=== PATIENT | female | born 1935 | race Caucasian/White ===

== ENCOUNTER → 2017-05-08 | Outpatient (REF) | payer OTHER | LOC: M LAB REF 17:05 | PROVIDERS: ATTEND Nurse Practitioner Family | DX: N76.0 Acute vaginitis (principal) ==

== ENCOUNTER 2017-07-28 22:44 | Emergency (ER) | payer OTHER ==
[2017-07-29 00:01] LABS: BASO % 0.2 % (0.0-1.0); EOS % 0.2 % (0.0-3.0); IMMATURE GRANULOCYTE # 0.1 10^3/uL (0-0); IMMATURE GRANULOCYTE % 0.7 % (0-0); LYMPH % 6.6 % (24.0-44.0); MEAN CORPUSCULAR HEMOGLOBIN 30.6 pg (27.0-33.0); MEAN CORPUSCULAR HGB CONC 33.9 g/dl (32.0-36.5); MEAN CORPUSCULAR VOLUME 90.1 fl (80.0-96.0); MONO # 1.6 10^3/uL (0.0-0.8); MONO % 10.6 % (0.0-5.0); NEUTROPHILS # 12.1 10^3/uL (1.8-7.7); NEUTROPHILS % 81.7 % (36.0-66.0); PLATELET COUNT, AUTOMATED 133 10^3/uL (150-450); RED CELL DISTRIBUTION WIDTH 12.1 % (11.5-14.5); WHITE BLOOD COUNT 14.8 10^3/uL (4.0-10.0)
[2017-07-29 00:10] LABS: ANION GAP 7 MEQ/L (8-16); BLOOD UREA NITROGEN 44 MG/DL (7-18); CALCIUM LEVEL 8.7 MG/DL (8.8-10.2); CARBON DIOXIDE LEVEL 31 MEQ/L (21-32); CHLORIDE LEVEL 102 MEQ/L (98-107); CREATININE FOR GFR 2.19 MG/DL (0.55-1.02); GLOMERULAR FILTRATION RATE 22.9 (>32); GLUCOSE, FASTING 125 MG/DL (83-110); POTASSIUM SERUM 3.9 MEQ/L (3.5-5.1); SODIUM LEVEL 140 MEQ/L (136-145)
[2017-07-29 00:13] LABS: LACTIC ACID SEPSIS PROTOCOL 1.4 MMOL/L (0.4-2.0)
[2017-07-29] MEDS: CIPROFLOXACIN 400 MG in APPROPRIATE DILUENT 1 EA IV (01:30)
[2017-07-29] MEDS: NS 1,000 ML IV (01:30)
== END 2017-07-29 04:02 | disposition home or self-care (01) ==
LOC: M ED 22:44
DX: N39.0 Urinary tract infection, site not specified (principal); E86.0 Dehydration; I10 Essential (primary) hypertension; E78.5 Hyperlipidemia, unspecified; Z79.899 Other long term (current) drug therapy; Z79.82 Long term (current) use of aspirin; Z88.8 Allergy status to other drugs, medicaments and biological substances
CPT/HCPCS: J0744

== ENCOUNTER → 2018-06-15 | Outpatient (REF) | payer OTHER ==
[2018-06-15 18:57] LABS: VITAMIN B12 LEVEL 702 PG/ML (247-911)
== END ==
LOC: M LAB REF 16:46
DX: L65.8 Other specified nonscarring hair loss (principal)
CPT/HCPCS: 82607

== ENCOUNTER → 2018-06-29 | Outpatient (REF) | payer OTHER | LOC: M LAB REF 16:43 | DX: N76.0 Acute vaginitis (principal) | CPT/HCPCS: 87070 ==

== ENCOUNTER → 2018-07-21 | Outpatient (REF) | payer OTHER ==
[~2018-07-21] MED LIST: AMIT100TA PO; ASPI1TAB15 PO; CARV25TA PO; CIPR-249 PO; FURO40TA2 PO; GABA-1171 PO; LORA0.5T11 PO; MICR10CA PO; SIMV20TA2 PO
[2018-07-21 13:51] LABS: BACTERIA, URINE AUTO 1+ (NEGATIVE); RBC, URINE AUTO 5 /HPF (0-3); SQUAMOUS EPITHELIAL CELL UR AU 2 /HPF (0-6); WBC, URINE AUTO 2 /HPF (0-3)
== END ==
LOC: M LAB REF 12:48
PROVIDERS: ATTEND Nurse Practitioner Family
DX: R31.9 Hematuria, unspecified (principal)

== ENCOUNTER → 2018-08-19 | Outpatient (REF) | payer MEDICARE, OTHER | LOC: M SMT 17:07 | PROVIDERS: ATTEND Specialist | DX: R31.29 Other microscopic hematuria (principal) | CPT/HCPCS: 87480; 87510; 87660; G0463 ==

== ENCOUNTER 2019-06-03 08:02 | Day surgery (SDC) | payer MEDICARE ==
[~2019-06-03] VITALS: Ht 149.9 cm; Wt 49.0 kg
[~2019-06-03 08:02] MED LIST changes: +CALC500C16 PO; +LEVO50TA5 PO; +LOSA100T50 PO; +MM S100C PO; +MULTCAP PO; +NS 1,000 ML IV ONE; +POTA10TA16 PO
[2019-06-03] MEDS ORDERED: PROPOFOL 200 MG/20 ML VIAL As Ordered ONE (09:14)
[2019-06-03] MEDS ORDERED: LIDOCAINE 2% INJ 100 MG/5 ML SDV (FOR ANES.) As Ordered ONE (09:14)
[2019-06-03] MEDS ORDERED: fentaNYL 100 MCG/2 ML INJECTION (J3010) As Ordered ONE (09:14)
--- NOTE | 2019-06-03 09:27 | ROOR ---
Patient Name: Megan Nevarez Procedure Date: 06/03/2019 9:10 AM Date of : 1935 Age: 83 Room: [facility] Gender: Female Note Status: Finalized Procedure: Upper GI endoscopy Indications: Iron deficiency anemia Providers: David San Jr, MD Referring MD: VAMSI SANCHEZ NP Requesting Provider: Medicines: Propofol per Anesthesia Complications: No immediate complications. Procedure: Pre-Anesthesia Assessment: - Prior to the procedure, a History and Physical was performed, and patient medications and allergies were reviewed. The patient is competent. The risks and benefits of the procedure and the sedation options and risks were discussed with the patient. All questions were answered and informed consent was obtained. Patient identification and proposed procedure were verified by the physician and the nurse in the pre-procedure area and in the procedure room. Mental Status Examination: alert and oriented. Airway Examination: normal oropharyngeal airway and neck mobility. Respiratory Examination: clear to auscultation. CV Examination: normal. ASA Grade Assessment: III - A patient with severe systemic disease. After reviewing the risks and benefits, the patient was deemed in satisfactory condition to undergo the procedure. The anesthesia plan was to use moderate sedation / analgesia (conscious sedation). Immediately prior to administration of medications, the patient was re-assessed for adequacy to receive sedatives. The heart rate, respiratory rate, oxygen saturations, blood pressure, adequacy of pulmonary ventilation, and response to care were monitored throughout the procedure. The physical status of the patient was re-assessed after the procedure. The Endoscope was introduced through the mouth, and advanced to the second part of duodenum. The patient tolerated the procedure well. The upper GI endoscopy was accomplished without difficulty. Findings: The upper third of the esophagus, middle third of the esophagus and lower third of the esophagus were normal. Patchy severe inflammation with hemorrhage characterized by congestion (edema), erosions and friability was found in the gastric antrum and in the prepyloric region of the stomach. Biopsies were taken with a cold forceps for histology. The cardia, gastric fundus and gastric body were normal. The duodenal bulb, first portion of the duodenum and second portion of the duodenum were normal. Impression: - Normal upper third of esophagus, middle third of esophagus and lower third of esophagus. - Gastritis with hemorrhage. Biopsied. - Normal cardia, gastric fundus and gastric body. - Normal duodenal bulb, first portion of the duodenum and second portion of the duodenum. Recommendation: - Discharge patient to home (ambulatory). - Return to my office as previously scheduled. David San MD David San Jr, MD 06/03/2019 9:26:35 AM Electronically signed by David San Jr, MD Number of Addenda: 0 Note Initiated On: 06/03/2019 9:10 AM Estimated Blood Loss: Estimated blood loss: none.
--- NOTE | 2019-06-03 09:46 | ROOR ---
Patient Name: Megan Nevarez Procedure Date: 06/03/2019 9:11 AM Date of : 1935 Age: 83 Room: [facility] Gender: Female Note Status: Finalized Procedure: Colonoscopy Indications: Iron deficiency anemia Providers: aDvid San Jr, MD Referring MD: VAMSI SANCHEZ NP Requesting Provider: Medicines: Propofol per Anesthesia Complications: No immediate complications. Procedure: Pre-Anesthesia Assessment: - Prior to the procedure, a History and Physical was performed, and patient medications and allergies were reviewed. The patient is competent. The risks and benefits of the procedure and the sedation options and risks were discussed with the patient. All questions were answered and informed consent was obtained. Patient identification and proposed procedure were verified by the physician and the nurse in the pre-procedure area and in the procedure room. Mental Status Examination: alert and oriented. Airway Examination: normal oropharyngeal airway and neck mobility. Respiratory Examination: clear to auscultation. CV Examination: normal. ASA Grade Assessment: III - A patient with severe systemic disease. After reviewing the risks and benefits, the patient was deemed in satisfactory condition to undergo the procedure. The anesthesia plan was to use moderate sedation / analgesia (conscious sedation). Immediately prior to administration of medications, the patient was re-assessed for adequacy to receive sedatives. The heart rate, respiratory rate, oxygen saturations, blood pressure, adequacy of pulmonary ventilation, and response to care were monitored throughout the procedure. The physical status of the patient was re-assessed after the procedure. The Colonoscope was introduced through the anus and advanced to the cecum, identified by appendiceal orifice and ileocecal valve. The colonoscopy was performed without difficulty. The patient tolerated the procedure well. The quality of the bowel preparation was adequate. Findings: The rectum, descending colon, transverse colon, ascending colon, cecum and appendiceal orifice appeared normal. Multiple small and large-mouthed diverticula were found in the sigmoid colon. Impression: - The rectum, descending colon, transverse colon, ascending colon, cecum and appendiceal orifice are normal. - Diverticulosis in the sigmoid colon. - No specimens collected. Recommendation: - Discharge patient to home (ambulatory). David San MD David San Jr, MD 06/03/2019 9:46:30 AM Electronically signed by David San Jr, MD Number of Addenda: 0 Note Initiated On: 06/03/2019 9:11 AM Estimated Blood Loss: Estimated blood loss: none.
[2019-06-03 10:05] VITALS: BP 115/86
== END 2019-06-03 10:20 | disposition home or self-care (01) ==
LOC: M OPP 08:02
PROVIDERS: ATTEND Surgery
DX: K57.30 Diverticulosis of large intestine without perforation or abscess without bleeding (principal); K92.1 Melena; D50.9 Iron deficiency anemia, unspecified; Z86.010 Personal history of colon polyps; K29.71 Gastritis, unspecified, with bleeding; I42.0 Dilated cardiomyopathy; I50.22 Chronic systolic (congestive) heart failure; I44.7 Left bundle-branch block, unspecified; Z79.82 Long term (current) use of aspirin; Z79.899 Other long term (current) drug therapy; Z95.810 Presence of automatic (implantable) cardiac defibrillator
CPT/HCPCS: 43239; 45378; 88305; J3010

== ENCOUNTER 2021-03-30 19:20 | Emergency (ER) | payer MEDICARE ==
[~2021-03-30] VITALS: Ht 149.9 cm; Wt 51.3 kg
[~2021-03-30 19:20] MED LIST changes: +ASPI-546 PO; -ASPI1TAB15 PO; -LORA0.5T11 PO; +LORA0.5T5 PO; -NS 1,000 ML IV ONE; -SIMV20TA2 PO; +SIMV20TA22 PO
[2021-03-30 19:22] VITALS: BP 163/77
== END 2021-03-30 21:39 | disposition home or self-care (01) ==
LOC: M ED 19:20
DX: L76.22 Postprocedural hemorrhage of skin and subcutaneous tissue following other procedure (principal); I25.10 Atherosclerotic heart disease of native coronary artery without angina pectoris; I10 Essential (primary) hypertension; Z79.82 Long term (current) use of aspirin; Z79.899 Other long term (current) drug therapy

== ENCOUNTER → 2021-08-24 | Outpatient (REF) | payer MEDICARE ==
[~2021-08-24] MED LIST changes: +LOSA100T45 PO; -LOSA100T50 PO; +POTA-149 PO; -POTA10TA16 PO
== END ==
LOC: M LAB REF 16:53
PROVIDERS: ATTEND Registered Nurse
DX: N76.0 Acute vaginitis (principal)

== ENCOUNTER → 2022-03-04 | Outpatient (CLI) | payer MEDICARE | LOC: M WUC 14:56 | PROVIDERS: ATTEND Registered Nurse | DX: M54.6 Pain in thoracic spine (principal); W19.XXXA Unspecified fall, initial encounter ==

== ENCOUNTER 2022-11-28 08:16 | Emergency (ER) | payer MEDICARE ==
[~2022-11-28] VITALS: Ht 149.9 cm; Wt 50.7 kg
[2022-11-28] MEDS ORDERED: traMADol 50 MG TAB PO ONE (09:30)
[2022-11-28] MEDS ORDERED: TRAM50TA2 PO ×2 (10:39→11:26)
[2022-11-28 10:53] VITALS: BP 139/66
== END 2022-11-28 11:01 | disposition home or self-care (01) ==
LOC: M ED 08:16
DX: S20.211A Contusion of right front wall of thorax, initial encounter (principal); S22.41XA Multiple fractures of ribs, right side, initial encounter for closed fracture; J91.8 Pleural effusion in other conditions classified elsewhere; W18.2XXA Fall in (into) shower or empty bathtub, initial encounter; I10 Essential (primary) hypertension; E03.9 Hypothyroidism, unspecified; Z95.0 Presence of cardiac pacemaker; Y92.009 Unspecified place in unspecified non-institutional (private) residence as the place of occurrence of the external cause; Z79.82 Long term (current) use of aspirin; Z79.811 Long term (current) use of aromatase inhibitors; Z79.810 Long term (current) use of selective estrogen receptor modulators (SERMs); Z79.899 Other long term (current) drug therapy

== ENCOUNTER → 2023-10-06 | Outpatient (CLI) | payer MEDICARE ==
[~2023-10-06] MED LIST changes: -LOSA100T45 PO; +LOSA100T46 PO; +TRAM50TA2 PO
== END ==
LOC: M WUC 12:46
PROVIDERS: ATTEND Physician Assistant
DX: S46.811A Strain of other muscles, fascia and tendons at shoulder and upper arm level, right arm, initial encounter (principal); S39.012A Strain of muscle, fascia and tendon of lower back, initial encounter; W18.30XA Fall on same level, unspecified, initial encounter; Y92.009 Unspecified place in unspecified non-institutional (private) residence as the place of occurrence of the external cause

== ENCOUNTER → 2024-07-31 | Outpatient (REF) | payer MEDICARE | LOC: M WUC 18:29 | PROVIDERS: ATTEND Physician Assistant | DX: R30.0 Dysuria (principal) ==

== ENCOUNTER 2025-03-18 21:35 | Inpatient (IN) | payer MEDICARE ==
[~2025-03-18] VITALS: Ht 149.9 cm; Wt 53.9 kg
[2025-03-19 00:58] LABS: BASO # 0.1 10^3/uL (0.0-0.2); BASO % 0.5 % (0.0-1.0); EOS # 0.1 10^3/uL (0.0-0.5); EOS % 1.1 % (0.0-3.0); LYMPH # 2.2 10^3/uL (1.5-5.0); LYMPH % 16.9 % (24.0-44.0); MONO # 1.1 10^3/uL (0.0-0.8); MONO % 8.0 % (2.0-8.0); NEUTROPHILS # 9.7 10^3/uL (1.5-8.5); NEUTROPHILS % 73.2 % (36.0-66.0); PLATELET COUNT, AUTOMATED 186 10^3/uL (150-450)
[2025-03-19] MEDS: ONDANSETRON 4MG 2ML VIAL IV ONE ×3 (01:01→16:49)
[2025-03-19] MEDS: MORPHINE 4 MG/ML 1 ML VIAL IV PRN (01:01)
[2025-03-19 01:17] LABS: ALT/SGPT < 9 U/L (7.0-40); AST/SGOT 26 U/L (<34); CALCIUM LEVEL 10.1 MG/DL (8.3-10.6); CARBON DIOXIDE LEVEL 30 MMOL/L (20-31); CHLORIDE LEVEL 99 MMOL/L (98-107); CK-MB VALUE MASS 1.8 NG/ML (<3.6); CREATININE FOR GFR 0.85 MG/DL (0.55-1.30); GLOMERULAR FILTRATION RATE 65.5 (>32); POTASSIUM SERUM 4.1 MMOL/L (3.5-5.1); SODIUM LEVEL 139 MMOL/L (136-145)
[2025-03-19 01:19] LABS: CPK CREATINE PHOSPHOKINASE 88 U/L (34-145); MB/CK RELATIVE INDEX 2.04 (< OR =4)
[2025-03-19] MEDS ORDERED: ISOVUE-370 76% 100 ML VIAL As Ordered ONE (01:34)
[2025-03-19 02:47] LABS: CK-MB VALUE MASS 1.4 NG/ML (<3.6); CPK CREATINE PHOSPHOKINASE 95.0 U/L (34-145); MB/CK RELATIVE INDEX 1.47 (< OR =4)
[2025-03-19] MEDS: cefTRIAXone SOD 1 GM in DEXTROSE 5% (D5W) ADV/MINI-BAG 50 ML IV ONE (04:10)
[2025-03-19] MEDS: BISACODYL 10 MG SUPP PR SCH (05:34)
[2025-03-19 06:38] LABS: KETONE, URINE AUTO RFX TRACE mg/dL (NEGATIVE); MUCUS, URINE RFX SMALL (NEGATIVE); NITRITE, URINE AUTO RFX NEGATIVE (NEGATIVE); RBC, URINE AUTO RFX 0 /HPF (0-3); SQUAM EPITHELIAL CELL UR AURFX 8 /HPF (0-6); WBC, URINE AUTO RFX 1 /HPF (0-3)
[2025-03-19 06:51] LABS: LEUKOCYTE ESTERASE UR AUTO RFX 1+ (NEGATIVE)
[2025-03-19] MEDS ORDERED: POTA10CA70 PO ×2 (06:53)
[2025-03-19] MEDS ORDERED: AMLO1TAB24 PO (06:53)
[2025-03-19] MEDS ORDERED: FURO20TA2 PO (06:53)
[2025-03-19] MEDS ORDERED: ATIV1TAB10 PO (06:53)
[2025-03-19] MEDS ORDERED: LOSA25TA13 PO (06:53)
[2025-03-19] MEDS ORDERED: ESTR0.1C5 VG (06:53)
[2025-03-19] MEDS ORDERED: GINK40CA2 PO (06:53)
[2025-03-19] MEDS ORDERED: PANT40TA29 PO (06:53)
[2025-03-19] MEDS ORDERED: AMIT50TA PO (06:53)
[2025-03-19] MEDS ORDERED: HOME MED LIST COMPLETE! XX SCH (06:55)
[2025-03-19] MEDS: DOCUSATE SODIUM 100 MG CAPSULE PO SCH (07:48)
[2025-03-19] MEDS: HYDROMORPHONE HCL 0.5 MG/0.5 ML SYRINGE IV PRN ×2 (07:55→16:48)
[2025-03-19] MEDS: metroNIDAZOLE 500 MG in IV 1 EA IV SCH (07:55)
[2025-03-19] MEDS ORDERED: LORazepam 1 MG TAB PO PRN (11:00)
[2025-03-19] MEDS: ONDANSETRON 4MG 2ML VIAL IV SCH (11:53)
[2025-03-19] MEDS: MAGNESIUM CITRATE 300 ML BTL PO ONE (11:54)
[2025-03-19 13:22] LABS: BASO # 0.1 10^3/uL (0.0-0.2); BASO % 0.4 % (0.0-1.0); EOS # 0.1 10^3/uL (0.0-0.5); EOS % 0.4 % (0.0-3.0); LYMPH # 1.6 10^3/uL (1.5-5.0); LYMPH % 11.4 % (24.0-44.0); MONO # 1.4 10^3/uL (0.0-0.8); MONO % 9.6 % (2.0-8.0); NEUTROPHILS # 11.1 10^3/uL (1.5-8.5); NEUTROPHILS % 77.8 % (36.0-66.0); PLATELET COUNT, AUTOMATED 208 10^3/uL (150-450)
[2025-03-19 13:52] LABS: ALT/SGPT 108.0 U/L (7.0-40); AST/SGOT 313.0 U/L (<34); CALCIUM LEVEL 9.5 MG/DL (8.3-10.6); CARBON DIOXIDE LEVEL 28.0 MMOL/L (20-31); CHLORIDE LEVEL 103.0 MMOL/L (98-107); CREATININE FOR GFR 0.88 MG/DL (0.55-1.30); GLOMERULAR FILTRATION RATE 62.8 (>32); MAGNESIUM LEVEL 1.9 MG/DL (1.8-2.4); POTASSIUM SERUM 4.2 MMOL/L (3.5-5.1); SODIUM LEVEL 143.0 MMOL/L (136-145)
[2025-03-19 14:46] VITALS: BP 120/68; TEMP 97.5; O2SAT 91
[2025-03-19 15:00] LABS: C REACTIVE PROTEIN QUANTITATIV < 0.50 MG/DL (<1.0)
[2025-03-19] MEDS: LOSARTAN 25 MG TAB PO SCH (15:28)
[2025-03-19] MEDS: FUROSEMIDE 20 MG TAB PO SCH (15:29)
[2025-03-19] MEDS: PANTOPRAZOLE 40MG TAB PO SCH (16:01)
[2025-03-19] MEDS: POTASSIUM CHLORIDE 10MEQ SR TABLET PO SCH (16:01)
[2025-03-19] MEDS: amLODIPine 5 MG TAB PO SCH (16:03)
[2025-03-19] MEDS: LR 1,000 ML IV SCH (16:03)
[2025-03-19] MEDS: LEVOTHYROXINE 50 MCG TABLET (0.05 MG) PO SCH (16:06)
[2025-03-19 16:55] VITALS: BP 136/69; TEMP 98.1; O2SAT 92
[2025-03-19] MEDS ORDERED: POTASSIUM CHLORIDE 10MEQ SR TABLET PO SCH (21:00)
[2025-03-19] MEDS ORDERED: SIMVASTATIN 20 MG TAB PO SCH (21:00)
[2025-03-19] MEDS ORDERED: AMITRIPTYLINE 50MG TAB PO SCH (21:00)
[2025-03-19 23:15] VITALS: BP 135/69; TEMP 97.7; O2SAT 96
[2025-03-19] MEDS: AMITRIPTYLINE 50MG TAB NG SCH (23:21)
[2025-03-20] VITALS (7 sets, daily range): BP systolic 124–134; BP diastolic 60–76; TEMP 97.5–97.9; O2SAT 94–97
[2025-03-20] MEDS: cefTRIAXone SOD 1 GM in DEXTROSE 5% (D5W) ADV/MINI-BAG 50 ML IV SCH (05:26)
[2025-03-20 06:04] LABS: PLATELET COUNT, AUTOMATED 180 10^3/uL (150-450)
[2025-03-20 06:36] LABS: ALT/SGPT 66.0 U/L (7.0-40); AST/SGOT 109.0 U/L (<34); CALCIUM LEVEL 8.6 MG/DL (8.3-10.6); CARBON DIOXIDE LEVEL 30.0 MMOL/L (20-31); CHLORIDE LEVEL 103.0 MMOL/L (98-107); CREATININE FOR GFR 0.87 MG/DL (0.55-1.30); GLOMERULAR FILTRATION RATE 63.7 (>32); MAGNESIUM LEVEL 1.9 MG/DL (1.8-2.4); POTASSIUM SERUM 4.3 MMOL/L (3.5-5.1); SODIUM LEVEL 145.0 MMOL/L (136-145)
[2025-03-20] MEDS: PANTOPRAZOLE 40MG VIAL IV SCH (08:29)
[2025-03-20] MEDS: LOSARTAN 25 MG TAB NG SCH (08:30)
[2025-03-20] MEDS: ENOXAPARIN 30 MG/0.3 ML SYRINGE (J1650 PER 10MG) SC SCH (08:31)
[2025-03-20] MEDS: amLODIPine 5 MG TAB NG SCH (08:31)
[2025-03-20] MEDS ORDERED: DOCUSATE SODIUM 100 MG CAPSULE PO SCH (09:00)
[2025-03-20] MEDS: CEPACOL LOZENGE PO PRN (11:01)
[2025-03-20] MEDS: ONDANSETRON 4MG 2ML VIAL IV PRN (21:34)
[2025-03-21] VITALS (7 sets, daily range): BP systolic 119–152; BP diastolic 58–81; TEMP 97.5–97.7; O2SAT 92–98
[2025-03-21 08:01] LABS: BASO # 0.1 10^3/uL (0.0-0.2); BASO % 0.4 % (0.0-1.0); EOS # 0.1 10^3/uL (0.0-0.5); EOS % 0.5 % (0.0-3.0); LYMPH # 1.1 10^3/uL (1.5-5.0); LYMPH % 8.5 % (24.0-44.0); MONO # 1.3 10^3/uL (0.0-0.8); MONO % 10.1 % (2.0-8.0); NEUTROPHILS # 10.3 10^3/uL (1.5-8.5); NEUTROPHILS % 80.0 % (36.0-66.0); PLATELET COUNT, AUTOMATED 160 10^3/uL (150-450)
[2025-03-21 08:32] LABS: CALCIUM LEVEL 8.4 MG/DL (8.3-10.6); CARBON DIOXIDE LEVEL 28.0 MMOL/L (20-31); CHLORIDE LEVEL 102.0 MMOL/L (98-107); CREATININE FOR GFR 0.78 MG/DL (0.55-1.30); GLOMERULAR FILTRATION RATE 72.6 (>32); MAGNESIUM LEVEL 1.7 MG/DL (1.8-2.4); POTASSIUM SERUM 3.8 MMOL/L (3.5-5.1); SODIUM LEVEL 144.0 MMOL/L (136-145)
[2025-03-21] MEDS ORDERED: E-Z-PAQUE 96% w/w SUSP 176 GM BTL As Ordered ONE (12:01)
[2025-03-21] MEDS: MAG SULF 1GM/100ML (MAG RUN) 1 GM in IV 1 EA IV ONE (14:44)
[2025-03-21] MEDS: LR 1,000 ML IV SCH (19:13)
[2025-03-21] MEDS: OLANZapine INTRAMUSCULAR 10MG VIAL IM SCH (20:33)
[2025-03-22] VITALS (9 sets, daily range): BP systolic 115–161; BP diastolic 64–87; TEMP 97.3–98.1; O2SAT 84–94
[2025-03-22 06:15] LABS: PLATELET COUNT, AUTOMATED 153 10^3/uL (150-450)
[2025-03-22 06:37] LABS: CALCIUM LEVEL 8.3 MG/DL (8.3-10.6); CARBON DIOXIDE LEVEL 28.0 MMOL/L (20-31); CHLORIDE LEVEL 104.0 MMOL/L (98-107); CREATININE FOR GFR 0.71 MG/DL (0.55-1.30); GLOMERULAR FILTRATION RATE 81.2 (>32); MAGNESIUM LEVEL 1.7 MG/DL (1.8-2.4); POTASSIUM SERUM 3.5 MMOL/L (3.5-5.1); SODIUM LEVEL 146.0 MMOL/L (136-145)
[2025-03-22 09:35] LABS: ALT/SGPT 29.0 U/L (7.0-40); AST/SGOT 34.0 U/L (<34)
[2025-03-22] MEDS: MAG SULF 1GM/100ML (MAG RUN) 1 GM in IV 1 EA IV ONE (10:51)
[2025-03-22] MEDS: ACETAMINOPHEN 325 MG TAB PO PRN (16:12)
[2025-03-23] VITALS: BP 126/67; TEMP 97.3; O2SAT 90
[2025-03-23 04:00] VITALS: BP 152/78; TEMP 97.9; O2SAT 91
[2025-03-23 06:03] LABS: BASO # 0.0 10^3/uL (0.0-0.2); BASO % 0.4 % (0.0-1.0); EOS # 0.1 10^3/uL (0.0-0.5); EOS % 1.1 % (0.0-3.0); LYMPH # 1.1 10^3/uL (1.5-5.0); LYMPH % 11.3 % (24.0-44.0); MONO # 1.0 10^3/uL (0.0-0.8); MONO % 9.6 % (2.0-8.0); NEUTROPHILS # 7.8 10^3/uL (1.5-8.5); NEUTROPHILS % 77.2 % (36.0-66.0); PLATELET COUNT, AUTOMATED 176 10^3/uL (150-450)
[2025-03-23 06:28] LABS: CALCIUM LEVEL 8.5 MG/DL (8.3-10.6); CARBON DIOXIDE LEVEL 29.0 MMOL/L (20-31); CHLORIDE LEVEL 106.0 MMOL/L (98-107); CREATININE FOR GFR 0.69 MG/DL (0.55-1.30); GLOMERULAR FILTRATION RATE 82.9 (>32); MAGNESIUM LEVEL 1.7 MG/DL (1.8-2.4); POTASSIUM SERUM 3.3 MMOL/L (3.5-5.1); SODIUM LEVEL 148.0 MMOL/L (136-145)
[2025-03-23] MEDS ORDERED: amLODIPine 5 MG TAB PO SCH (09:01)
[2025-03-23] MEDS ORDERED: LOSARTAN 25 MG TAB PO SCH (09:03)
[2025-03-23] MEDS: amLODIPine 5 MG TAB PO SCH (09:08)
[2025-03-23] MEDS: LOSARTAN 25 MG TAB PO SCH (09:08)
[2025-03-23] MEDS: MAG SULF 1GM/100ML (MAG RUN) 1 GM in IV 1 EA IV ONE (11:17)
[2025-03-23 12:00] VITALS: BP 141/70; TEMP 98.1; O2SAT 94
[2025-03-23] MEDS: KCL 10MEQ/100ML SWI (KRUN) 10 MEQ in IV 1 EA IV SCH (12:53)
[2025-03-23] MEDS: SIMETHICONE 80MG CHEW TAB PO PRN (12:53)
[2025-03-23] MEDS: POTASSIUM CHLORIDE 10MEQ SR TABLET PO ONE (14:25)
[2025-03-23 14:43] VITALS: O2SAT 92
[2025-03-23 19:43] VITALS: BP 141/82; TEMP 97.9; O2SAT 93
[2025-03-23] MEDS: AMITRIPTYLINE 50MG TAB PO SCH (20:38)
[2025-03-23] MEDS: HALOBETASOL PROPIONATE 0.05% TOP SCH (20:39)
[2025-03-23] MEDS: ESTRADIOL 0.01% TOP SCH (20:40)
[2025-03-23 23:52] VITALS: BP 129/73; TEMP 97.9; O2SAT 93
[2025-03-24] VITALS (10 sets, daily range): BP systolic 117–160; BP diastolic 55–78; TEMP 97.3–98.2; O2SAT 91–95
[2025-03-24] MEDS: MORPHINE 2 MG/ML 1 ML VIAL IV PRN (03:12)
[2025-03-24] MEDS: ACETAMINOPHEN *IV* 1,000 MG in IV 1 EA IV ONE (05:00)
[2025-03-24] MEDS: MORPHINE 2 MG/ML 1 ML VIAL IV ONE (05:00)
[2025-03-24 05:42] LABS: BASO # 0.0 10^3/uL (0.0-0.2); BASO % 0.3 % (0.0-1.0); EOS # 0.1 10^3/uL (0.0-0.5); EOS % 1.1 % (0.0-3.0); LYMPH # 1.2 10^3/uL (1.5-5.0); LYMPH % 9.7 % (24.0-44.0); MONO # 1.2 10^3/uL (0.0-0.8); MONO % 10.1 % (2.0-8.0); NEUTROPHILS # 9.3 10^3/uL (1.5-8.5); NEUTROPHILS % 78.5 % (36.0-66.0); PLATELET COUNT, AUTOMATED 186 10^3/uL (150-450)
[2025-03-24 06:14] LABS: CALCIUM LEVEL 8.3 MG/DL (8.3-10.6); CARBON DIOXIDE LEVEL 29.0 MMOL/L (20-31); CHLORIDE LEVEL 106.0 MMOL/L (98-107); CREATININE FOR GFR 0.59 MG/DL (0.55-1.30); GLOMERULAR FILTRATION RATE 86.1 (>32); MAGNESIUM LEVEL 1.8 MG/DL (1.8-2.4); POTASSIUM SERUM 3.3 MMOL/L (3.5-5.1); SODIUM LEVEL 149.0 MMOL/L (136-145)
[2025-03-24] MEDS: KCL 20MEQ IN D5/0.45NS 1000ML 1,000 ML IV SCH (09:50)
[2025-03-24] MEDS ORDERED: MIDAZOLAM INJ 2 MG/2 ML VIAL As Ordered ONE (10:15)
[2025-03-24] MEDS ORDERED: ROCURONIUM BROMIDE 50MG/5ML VIAL As Ordered ONE (10:19)
[2025-03-24] MEDS ORDERED: LIDOCAINE 2% 100 MG/5 ML SDV (FOR ANES.) As Ordered ONE (10:19)
[2025-03-24] MEDS ORDERED: SUGAMMADEX SODIUM 500 MG/5 ML VIAL As Ordered ONE (10:19)
[2025-03-24] MEDS ORDERED: ONDANSETRON 4MG 2ML VIAL As Ordered ONE (10:20)
[2025-03-24] MEDS ORDERED: dexAMETHasone 4 MG/ML 1 ML VIAL As Ordered ONE (10:20)
[2025-03-24] MEDS ORDERED: KETOROLAC 30 MG/ML 1 ML VIAL As Ordered ONE (10:20)
[2025-03-24 10:34] LABS: ALT/SGPT 19.0 U/L (7.0-40); AST/SGOT 26.0 U/L (<34)
[2025-03-24] MEDS ORDERED: HYDROMORPHONE HCL 0.5 MG/0.5 ML SYRINGE IV PRN ×3 (10:35→14:20)
[2025-03-24] MEDS: LR 1,000 ML IV SCH (10:35)
[2025-03-24] MEDS ORDERED: PHENYLephrine 500MCG 5ML (100MCG/ML) SYRINGE As Ordered ONE (11:52)
[2025-03-24] MEDS: MAG SULF 1GM/100ML (MAG RUN) 1 GM in IV 1 EA IV ONE (12:30)
[2025-03-24] MEDS: KCL 20MEQ IN 100ML SWI (KRUN) 20 MEQ in IV 1 EA IV ONE (12:30)
[2025-03-24] MEDS ORDERED: ACETAMINOPHEN 1000MG/100ML IV BAG As Ordered ONE (13:17)
[2025-03-24] MEDS ORDERED: ONDANSETRON 4MG 2ML VIAL IV PRN (14:20)
[2025-03-24 15:52] LABS: CALCIUM LEVEL 8.0 MG/DL (8.3-10.6); CARBON DIOXIDE LEVEL 28.0 MMOL/L (20-31); CHLORIDE LEVEL 106.0 MMOL/L (98-107); CREATININE FOR GFR 0.63 MG/DL (0.55-1.30); GLOMERULAR FILTRATION RATE 84.7 (>32); POTASSIUM SERUM 3.8 MMOL/L (3.5-5.1); SODIUM LEVEL 147.0 MMOL/L (136-145)
[2025-03-24] MEDS: KCL 10MEQ IN D5/0.45NS 1000ML 1,000 ML IV SCH (17:33)
[2025-03-25 04:58] VITALS: BP 142/72; TEMP 97.7; O2SAT 94
[2025-03-25 06:27] LABS: BASO # 0.0 10^3/uL (0.0-0.2); BASO % 0.2 % (0.0-1.0); EOS # 0.0 10^3/uL (0.0-0.5); EOS % 0.0 % (0.0-3.0); LYMPH # 1.2 10^3/uL (1.5-5.0); LYMPH % 8.1 % (24.0-44.0); MONO # 1.1 10^3/uL (0.0-0.8); MONO % 7.8 % (2.0-8.0); NEUTROPHILS # 12.1 10^3/uL (1.5-8.5); NEUTROPHILS % 83.5 % (36.0-66.0); PLATELET COUNT, AUTOMATED 225 10^3/uL (150-450)
[2025-03-25 06:55] LABS: CALCIUM LEVEL 8.0 MG/DL (8.3-10.6); CARBON DIOXIDE LEVEL 28.0 MMOL/L (20-31); CHLORIDE LEVEL 105.0 MMOL/L (98-107); CREATININE FOR GFR 0.63 MG/DL (0.55-1.30); GLOMERULAR FILTRATION RATE 84.7 (>32); MAGNESIUM LEVEL 1.8 MG/DL (1.8-2.4); POTASSIUM SERUM 3.5 MMOL/L (3.5-5.1); SODIUM LEVEL 144.0 MMOL/L (136-145)
[2025-03-25 08:00] VITALS: BP 149/88; TEMP 97.9; O2SAT 93
[2025-03-25 12:00] VITALS: BP 128/68; TEMP 97.7; O2SAT 86
[2025-03-25 19:46] VITALS: BP 133/80; TEMP 97.7; O2SAT 92
[2025-03-25] MEDS: SIMVASTATIN 20 MG TAB PO SCH (20:17)
[2025-03-26] VITALS: BP 123/56; TEMP 97.9; O2SAT 94
[2025-03-26 04:49] VITALS: BP 125/75; TEMP 98.1; O2SAT 94
[2025-03-26 06:34] LABS: BASO # 0.0 10^3/uL (0.0-0.2); BASO % 0.2 % (0.0-1.0); EOS # 0.4 10^3/uL (0.0-0.5); EOS % 2.7 % (0.0-3.0); LYMPH # 2.2 10^3/uL (1.5-5.0); LYMPH % 17.1 % (24.0-44.0); MONO # 1.1 10^3/uL (0.0-0.8); MONO % 8.7 % (2.0-8.0); NEUTROPHILS # 9.3 10^3/uL (1.5-8.5); NEUTROPHILS % 70.5 % (36.0-66.0); PLATELET COUNT, AUTOMATED 215 10^3/uL (150-450)
[2025-03-26 06:56] LABS: CALCIUM LEVEL 7.4 MG/DL (8.3-10.6); CARBON DIOXIDE LEVEL 29.0 MMOL/L (20-31); CHLORIDE LEVEL 107.0 MMOL/L (98-107); CREATININE FOR GFR 0.61 MG/DL (0.55-1.30); GLOMERULAR FILTRATION RATE 85.4 (>32); MAGNESIUM LEVEL 1.5 MG/DL (1.8-2.4); POTASSIUM SERUM 3.4 MMOL/L (3.5-5.1); SODIUM LEVEL 144.0 MMOL/L (136-145)
[2025-03-26 08:00] VITALS: BP 127/70; TEMP 97.9; O2SAT 94
[2025-03-26] MEDS: MAG SULF 1GM/100ML (MAG RUN) 1 GM in IV 1 EA IV ONE (08:21)
[2025-03-26] MEDS: MAG SULF 1GM/100ML (MAG RUN) 1 GM in IV 1 EA IV SCH (10:53)
[2025-03-26 12:00] VITALS: BP 113/52; TEMP 97.7; O2SAT 92
[2025-03-26] MEDS: KCL 10MEQ/100ML SWI (KRUN) 10 MEQ in IV 1 EA IV SCH (13:20)
[2025-03-26] MEDS ORDERED: LORazepam 0.5 MG TAB PO PRN (14:00)
[2025-03-26] MEDS: POTASSIUM CHLORIDE 10MEQ SR TABLET PO ONE (15:19)
[2025-03-26 16:00] VITALS: BP 114/56; TEMP 97.5; O2SAT 92
[2025-03-26 20:19] VITALS: BP 117/59; TEMP 97.5; O2SAT 91
[2025-03-27] VITALS (16 sets, daily range): BP systolic 106–132; BP diastolic 58–76; TEMP 97.7–97.9; O2SAT 86–97
[2025-03-27 06:41] LABS: BASO # 0.0 10^3/uL (0.0-0.2); BASO % 0.4 % (0.0-1.0); EOS # 0.2 10^3/uL (0.0-0.5); EOS % 2.1 % (0.0-3.0); LYMPH # 1.8 10^3/uL (1.5-5.0); LYMPH % 19.6 % (24.0-44.0); MONO # 1.0 10^3/uL (0.0-0.8); MONO % 10.4 % (2.0-8.0); NEUTROPHILS # 6.2 10^3/uL (1.5-8.5); NEUTROPHILS % 66.2 % (36.0-66.0); PLATELET COUNT, AUTOMATED 249 10^3/uL (150-450)
[2025-03-27 07:15] LABS: CALCIUM LEVEL 7.4 MG/DL (8.3-10.6); CARBON DIOXIDE LEVEL 28.0 MMOL/L (20-31); CHLORIDE LEVEL 105.0 MMOL/L (98-107); CREATININE FOR GFR 0.56 MG/DL (0.55-1.30); GLOMERULAR FILTRATION RATE 87.2 (>32); MAGNESIUM LEVEL 1.8 MG/DL (1.8-2.4); POTASSIUM SERUM 3.7 MMOL/L (3.5-5.1); SODIUM LEVEL 143.0 MMOL/L (136-145)
[2025-03-27] MEDS: FUROSEMIDE 20 MG TAB PO SCH (09:19)
[2025-03-27] MEDS: FUROSEMIDE 20 MG/2 ML VIAL IV ONE (16:24)
[2025-03-27] MEDS: POTASSIUM CHLORIDE 10MEQ SR TABLET PO SCH ×2 (21:02→21:03)
[2025-03-28] VITALS (8 sets, daily range): BP systolic 121–130; BP diastolic 57–75; TEMP 97.7–97.9; O2SAT 91–95
[2025-03-28 06:07] LABS: VENOUS BASE EXCESS 1.5 (-2.0-2.0); VENOUS HCO3 25.3 MMOL/L (23.0-27.0); VENOUS O2 SATURATION 93.2 % (60.0-80.0); VENOUS PARTIAL PRESSURE CO2 37.1 mmHg (38.0-50.0); VENOUS PARTIAL PRESSURE O2 64.6 mmHg (30.0-50.0); VENOUS PH 7.452 UNITS (7.330-7.430); VENOUS STANDARD HCO3 25.7 MMOL/L; VENOUS TOTAL CO2 26.5 MMOL/L (24.0-28.0)
[2025-03-28 06:21] LABS: BASO # 0.0 10^3/uL (0.0-0.2); BASO % 0.4 % (0.0-1.0); EOS # 0.2 10^3/uL (0.0-0.5); EOS % 2.3 % (0.0-3.0); LYMPH # 1.8 10^3/uL (1.5-5.0); LYMPH % 20.0 % (24.0-44.0); MONO # 1.1 10^3/uL (0.0-0.8); MONO % 11.7 % (2.0-8.0); NEUTROPHILS # 5.8 10^3/uL (1.5-8.5); NEUTROPHILS % 64.4 % (36.0-66.0); PLATELET COUNT, AUTOMATED 277 10^3/uL (150-450)
[2025-03-28 06:48] LABS: CALCIUM LEVEL 7.8 MG/DL (8.3-10.6); CARBON DIOXIDE LEVEL 30.0 MMOL/L (20-31); CHLORIDE LEVEL 103.0 MMOL/L (98-107); CREATININE FOR GFR 0.64 MG/DL (0.55-1.30); GLOMERULAR FILTRATION RATE 84.4 (>32); MAGNESIUM LEVEL 1.6 MG/DL (1.8-2.4); POTASSIUM SERUM 3.9 MMOL/L (3.5-5.1); SODIUM LEVEL 142.0 MMOL/L (136-145)
[2025-03-28] MEDS: CALCIUM CARBONATE 500 MG CHEW U/D PO ONE (08:12)
[2025-03-28] MEDS: MAG SULF 1GM/100ML (MAG RUN) 1 GM in IV 1 EA IV SCH (08:12)
[2025-03-28] MEDS: PANTOPRAZOLE 40MG TAB PO SCH (08:13)
== END 2025-03-28 11:49 | disposition home health service (06) | DRG 335 ==
LOC: M ED 21:35 → M ED INP 03-19 04:49 → M MSPAV 03-19 14:42
PROVIDERS: ADMIT Internal Medicine; ATTEND Internal Medicine
PROC: 8E0W4CZ Robotic Assisted Procedure of Trunk Region, Percutaneous Endoscopic Approach (ICD-10-PCS; 2025-03-24)
PROC: 0DNU4ZZ Release Omentum, Percutaneous Endoscopic Approach (ICD-10-PCS; principal; 2025-03-24 11:00)
DX: K56.50 Intestinal adhesions [bands], unspecified as to partial versus complete obstruction (principal); G92.8 Other toxic encephalopathy; I50.32 Chronic diastolic (congestive) heart failure; E87.0 Hyperosmolality and hypernatremia; J98.11 Atelectasis; J90 Pleural effusion, not elsewhere classified; K56.7 Ileus, unspecified; K21.9 Gastro-esophageal reflux disease without esophagitis; E03.9 Hypothyroidism, unspecified; I11.0 Hypertensive heart disease with heart failure; E83.42 Hypomagnesemia; K59.00 Constipation, unspecified; E87.6 Hypokalemia; F41.9 Anxiety disorder, unspecified; E78.5 Hyperlipidemia, unspecified; G89.29 Other chronic pain; K64.8 Other hemorrhoids; Z95.0 Presence of cardiac pacemaker; F39 Unspecified mood [affective] disorder; R10.13 Epigastric pain; I45.10 Unspecified right bundle-branch block; R41.0 Disorientation, unspecified; K57.90 Diverticulosis of intestine, part unspecified, without perforation or abscess without bleeding; Z79.890 Hormone replacement therapy; Z79.899 Other long term (current) drug therapy; Z79.82 Long term (current) use of aspirin